=== PATIENT | male | born 1985 | race Caucasian/White ===

== ENCOUNTER 2018-04-22 09:43 | Emergency (ER) | payer MEDICAID ==
--- NOTE | 2018-04-22 10:07 | EDPHY ---
H & P Stated Complaint: pt asking about assisted suicide Time Seen by Provider: 04/22/18 09:44 HPI/ROS: CHIEF COMPLAINT: M1 HISTORY OF PRESENT ILLNESS: 33-year-old male history of self-described chronic suicidal ideation since age 8, history of cutting behavior states that he went to [facility] this morning concerned about the state of affairs in the world, so afraid that the world is "going to implode" and inquired about physician assisted suicide. He then left a period thereafter and police came to his house to place my on M1 hold for concerns of suicidal ideation. Patient states that he is not actively endorsing suicidal ideation simply want away to "leave this world."He denies recent cutting behavior. Denies hallucination. Denies alcohol or drug use acutely. Denies homicidal ideation PRIMARY CARE PROVIDER: REVIEW OF SYSTEMS: 10 systems reviewed and negative with the exception of the elements mentioned in the history of present illness PAST MEDICAL & SURGICAL HISTORY: Self-described chronic suicidal ideation and cutting behavior SOCIAL HISTORY: Denies acute alcohol or drug use PHYSICAL EXAM (Prior to examination, patient consented to physical exam, hands were washed and my usual and customary physical exam procedures followed) 1) GENERAL: Well-developed, well-nourished, alert and oriented. Appears to be in no acute distress. Comp cooperative 2) HEAD: Normocephalic, atraumatic 3) HEENT: Pupils equal, round, reactive to light bilaterally. Sclera anicteric. 4) NECK: Full range of motion, no meningeal signs. 5) LUNGS: Clear auscultation bilaterally, no wheezes, no rhonchi, no retractions. 6) HEART: Regular rate and rhythm, no murmur, no heave, no gallop. 7) ABDOMEN: No guarding, no rebound, no focal tenderness, negative McBurney's, negative Zhang's, negative Rovsing's, negative peritoneal sign, 8) MUSCULOSKELETAL: No signs of acute injury. Moving all extremities, no focal areas of tenderness, no obvious trauma. No peripheral edema or discoloration. 9) BACK: No CVA tenderness, no midline vertebral tenderness, no fluctuance, no step-off, no obvious trauma, no visual or palpable abnormality. 10) SKIN: No rash, no petechiae. 11) Psychiatric: Patient is oriented X 3, there is no agitation. DIFFERENTIAL DIAGNOSIS: In no particular order including but not limited to depression, suicidal ideation, homicidal ideation - Personal History Current Tetanus/Diphtheria Vaccine: Unsure Current Tetanus Diphtheria and Acellular Pertussis (TDAP): Unsure - Medical/Surgical History Hx Asthma: No Hx Chronic Respiratory Disease: No Hx Diabetes: No Hx Cardiac Disease: No Hx Renal Disease: No Hx Cirrhosis: No Hx Alcoholism: No Hx HIV/AIDS: No Hx Splenectomy or Spleen Trauma: No Other PMH: Appy as child. "Depressed since I was 8" - Social History Smoking Status: Former smoker Constitutional: Initial Vital Signs Temperature (C) 36.5 C 04/22/18 09:57 Heart Rate 83 04/22/18 09:57 Respiratory Rate 18 04/22/18 09:57 Blood Pressure 133/92 H 04/22/18 09:57 O2 Sat (%) 98 04/22/18 09:57 O2 Delivery Mode Room Air Allergies/Adverse Reactions: No Known Allergies Allergy (Unverified 04/22/18 10:07) Home Medications: Medication Instructions Recorded NK [No Known Home Meds] 04/22/18 Medical Decision Making ED Course/Re-evaluation: 10:04 a.m.: This patient is currently on a pre-hospital M1. Diagnostic studies will be obtained and mental health downstairs maid will be consulted. I saw this patient independently based on established practice protocols. Care of patient under supervision of secondary supervising physician Dr Prescott with whom I discussed case. Patient is currently calm and cooperative 2:20 p.m.: Mental health downstairs maid has evaluated the patient, consultation Dr. Keegan Ghosh recommend vacated the M1 hold. - Data Points Laboratory Results: Laboratory Results 04/22/18 10:11 04/22/18 10:11 04/22/18 04/22/18 04/22/18 10:11 10:11 10:11 WBC 9.07 10^3/uL 10^3/uL (3.80-9.50) RBC 4.95 10^6/uL 10^6/uL (4.40-6.38) Hgb 16.6 g/dL g/dL (13.7-17.5) Hct 45.3 % % (40.0-51.0) MCV 91.5 fL fL (81.5-99.8) MCH 33.5 pg pg (27.9-34.1) MCHC 36.6 g/dL g/dL (32.4-36.7) RDW 12.0 % % (11.5-15.2) Plt Count 344 10^3/uL 10^3/uL (150-400) MPV 9.4 fL fL (8.7-11.7) Neut % (Auto) 66.9 % % (39.3-74.2) Lymph % (Auto) 25.5 % % (15.0-45.0) [place] % (Auto) 5.0 % % (4.5-13.0) Eos % (Auto) 1.2 % % (0.6-7.6) Baso % (Auto) 0.7 % % (0.3-1.7) Nucleat RBC Rel Count 0.0 % % (0.0-0.2) Absolute Neuts (auto) 6.08 10^3/uL 10^3/uL (1.70-6.50) Absolute Lymphs (auto) 2.31 10^3/uL 10^3/uL (1.00-3.00) Absolute Monos (auto) 0.45 10^3/uL 10^3/uL (0.30-0.80) Absolute Eos (auto) 0.11 10^3/uL 10^3/uL (0.03-0.40) Absolute Basos (auto) 0.06 10^3/uL 10^3/uL (0.02-0.10) Absolute Nucleated RBC 0.00 10^3/uL 10^3/uL (0-0.01) Immature Gran % 0.7 % % (0.0-1.1) Immature Gran # 0.06 10^3/uL 10^3/uL (0.00-0.10) Sodium 141 mEq/L mEq/L (135-145) Potassium 3.8 mEq/L mEq/L (3.3-5.0) Chloride 100 mEq/L mEq/L (97-110) Carbon Dioxide 29 mEq/l mEq/l (22-31) Anion Gap 12 mEq/L mEq/L (8-16) BUN 11 mg/dL mg/dL (7-23) Creatinine 1.0 mg/dL mg/dL (0.7-1.3) Estimated GFR > 60 Glucose 109 mg/dL H mg/dL (70-100) Calcium 9.8 mg/dL mg/dL (8.5-10.4) Salicylates < 1.0 mg/dL L mg/dL (2.0-20.0) Urine Opiates Screen NEGATIVE (NEGATIVE) Acetaminophen < 10 mcg/mL L mcg/mL (10-30) Urine Barbiturates NEGATIVE (NEGATIVE) Ur Phencyclidine Scrn NEGATIVE (NEGATIVE) Ur Amphetamine Screen NEGATIVE (NEGATIVE) U Benzodiazepines Scrn NEGATIVE (NEGATIVE) Urine Cocaine Screen NEGATIVE (NEGATIVE) U Marijuana (THC) Screen NON-NEGATIVE H (NEGATIVE) Ethyl Alcohol < 10 mg/dL mg/dL (0-10) Departure - Departure Disposition: Home, Routine, Self-Care Clinical Impression: Depression Qualifiers: Depression Type: unspecified Qualified Code(s): F32.9 - Major depressive disorder, single episode, unspecified Condition: Good Instructions: Depression (ED) Additional Instructions: Return to the ER immediately if you experience thoughts of hurting yourself, thoughts of hurting other people, thoughts of killing other people or killing yourself. Referrals: [facility],. [Clinic] - 2-3 days, call for appt.
[2018-04-22 10:21] LABS: PLATELET COUNT 344 10^3/uL (150-400)
[2018-04-22 14:33] VITALS: BP 124/81
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
--- NOTE | 2018-04-22 15:47 | ASMTTCLDSP ---
TLC Discharge Disposition Disposition: Answers: Discharge If Answers: Yes DISCHARGED: Patient/family given suicide hotline info & SAMHSA brochure? Disposition Notes: Notes: In consultation with [facility] ED PA, Zain Holloway, and on-call psychiatrist, Keegan Ghosh MD, both concurred that pt does not appear to meet 27-65 criteria requiring psychiatric hospitalization as pt does not appear to be an imminent risk of harm to self/others/gravely disabled due to a mental illness condition. Dr. Ghosh provided telephone order read back vacating M1 hold at 14:10 hrs. Discharge Concerns/Recommendations: Notes: Pt was offered voluntary mental health admission yet pt declined. Pt stated commitment or ability to keep self safe, denied thoughts of self harm or harm to others. Pt expressed a desire to f/u with [facility] and go to the [facility] if needing urgent mental health care. Pt was given local hotline information and SAMHSA brochure After an Attempt and encouraged to follow up with [facility] or his PCP at [facility]. Date and time M1 hold 04/22/2018 02:10 PM vacated (time format is hh:mm): Date Signed: 04/22/2018 03:46 PM Electronically Signed By:Luz Singletary
== END 2018-04-22 14:36 | disposition home or self-care (01) ==
DX: R45.851 Suicidal ideations (principal); F32.9 Major depressive disorder, single episode, unspecified; Z86.59 Personal history of other mental and behavioral disorders
CPT/HCPCS: 80305; G0480